=== PATIENT | male | born 1960 | race Caucasian/White ===

== ENCOUNTER 2018-04-29 10:15 | Outpatient (CLI) | payer BC ==
--- NOTE | 2018-04-30 07:29 | RAD ---
LEFT HAND THREE VIEWS: 04/29/18 No fracture, dislocation, or carpal abnormality was seen. Some deformity of the third metacarpal head could indicate prior trauma. No opaque foreign bodies were seen. IMPRESSION: No acute finding. POS: HOME
== END 2018-04-29 10:16 | disposition home or self-care (01) ==
LOC: BURRAD 10:15
PROVIDERS: ATTEND Nurse Practitioner Family
DX: S69.92XA Unspecified injury of left wrist, hand and finger(s), initial encounter (principal); T14.8XXA Other injury of unspecified body region, initial encounter